=== PATIENT | female | born 1990 | race Caucasian/White ===

== ENCOUNTER 2017-08-26 16:27 | Emergency (ER) | payer BC ==
[~2017-08-26] VITALS: Ht 154.9 cm; Wt 45.4 kg
[~2017-08-26 16:27] MED LIST: FLEXERIL PO; ULTRAM 50MG TAB50 MG PO
[2017-08-26] MEDS ORDERED: IBU800 MG PO (17:47)
[2017-08-26 17:52] VITALS: BP 115/70
== END 2017-08-26 17:53 | disposition home or self-care (01) ==
LOC: M.ERS 16:27
DX: S00.33XA Contusion of nose, initial encounter (principal); F17.210 Nicotine dependence, cigarettes, uncomplicated; Y04.8XXA Assault by other bodily force, initial encounter; Y93.89 Activity, other specified; Y92.89 Other specified places as the place of occurrence of the external cause; Y99.8 Other external cause status